=== PATIENT | female | born 1970 | race Caucasian/White ===

== ENCOUNTER 2025-05-03 13:20 | Outpatient (AMB) | payer OTHER, SELFPAY ==
--- NOTE | 2025-05-03 13:24 | MHC.PC.OV ---
Vital Signs 05/03/25 13:31 Height 5 ft 2.99 in Weight 171 lb BMI 30.3 BP 110/72 Blood Pressure Location Lt brachial Position Sitting Respiration 14 Pulse 107 H Pulse Source Pulse Oximeter Temp 98.1 F Temp Source Oral Pulse Oximetry (%) 97 Oxygen Delivery Method Room Air Intake Visit Reasons: New Appt New Patient requesitng an PE Allergies No Known Allergies Allergy (Verified 05/03/25 13:56) Medication List - Last Reconciled 05/03/25 by Jany Lester PA-C amlodipine 10 mg PO DAILY 90 days Tobacco use date assessed: 05/03/25 Dental Screening Dental Screen Date: 05/03/25 Did you have a dental visit in the last 12 months?: Yes Did you have a dental problem in the last 6 months where you did not have access to dental care?: No Was dental information given to patient?: Patient has dentist HPI New Appt New Patient requesitng an PE HPI Details Patient is a 54-year-old female who presents today to [facility]. She is transferring from [place]. She has a significant past medical history of hypertension. Currently on semaglutide from compound pharmacy. Overall eats healthy and exercises. She has found this semaglutide very helpful. 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 CV: Blood pressure today in the office is 110/72. She is on amlodipine 10 mg. Career Based Intervention Coordinator: Dr. 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 1. Little interest or pleasure in doing things: not at all 2. Feeling down, depressed, or hopeless: not at all 3. Trouble falling or staying asleep, or sleeping too much: not at all 4. Feeling tired or having little energy: not at all 5. Poor appetite or overeating: not at all 6. Feeling bad about yourself - or that you are a failure or have let yourself or your family down: not at all 7. Trouble concentrating on things, such as reading the newspaper or watching television: not at all 8. Moving or speaking so slowly that other people could have noticed. Or the opposite - being so fidgety or restless that you have been moving around a lot more than usual: not at all 9. Thoughts that you would be better off or of hurting yourself in some way: not at all Total score: 0 Depression Screening Interpretation: Negative Depression Screening Done: Yes 16729 - PHQ-9 Billing: Yes Source: Developed by Drs. Abdulkadir Toribio, Bethany Pack, Lew Owusu and colleagues, with an educational juliana from [employer]. Thrive Questionnaire Date Thrive assessed: 05/03/25 I am a: Patient What is your living situation today?: I have a steady place to live Within the past 12 months, did the food you bought not last and you didn't have the money to get more?: Never true Within the past 12 months, did you worry whether your food would run out before you got money to buy more?: Never true Do you have trouble paying for medicines?: No Do you have trouble getting transportation to medical appointments?: No Do you have trouble paying your heating and electricity bill?: No Do you have trouble taking care of your child, family member or friend?: No Do you have trouble with day-to-day activities such as bathing, preparing meals, shopping, managing finances, etc.?: No Are you currently unemployed and looking for a job?: No Are you interested in more education?: No Please select the resources that you would like help with: None Currently or been in a relationship where the following occur: No concerns reported THRIVE Score: 0 AUDIT C Alcohol Use Questionnaire (AUDIT-C) 1. How often do you have a drink containing alcohol?: 2-3 times a week 2. How many drinks containing alcohol do you have on a typical day when you are drinking?: 1 or 2 3. How often do you have six or more drinks on one occasion?: Never Total Score: 3 Score Reviewed/Action Taken: Yes OFELIA-7 AMB Questionnaire OFELIA-7 Date OFELIA - 7 assessed: 05/03/25 Feeling nervous, anxious, or on edge: 0 = Not at all Not being able to stop or control worryin = Not at all Worrying too much about different things: 0 = Not at all Trouble relaxin = Not at all Being so restless that it is hard to sit still: 0 = Not at all Becoming easily annoyed or irritable: 0 = Not at all Feeling afraid as if something awful might happen: 0 = Not at all Total OFELIA-7 score (0-4 normal; 5-9 mild; 10-14 moderate; 15-21 severe): 0 Source: Developed by Drs. Abdulkadir Toribio, Bethany Pack, Lew Owusu and colleagues, with an educational juliana from [employer]. OFELIA-7 Assessment Billing OFELIA-7 Assessment Tool: OFELIA-7 Assessment 28818 Physical exam (Primary Care) Vital Signs: Last Vital Signs Temp 98.1 F 05/03/25 13:31 Pulse 107 H 05/03/25 13:31 Resp 14 05/03/25 13:31 BP 110/72 05/03/25 13:31 Pulse Ox 97 05/03/25 13:31 Oxygen Delivery Method Room Air 05/03/25 13:31 BMI result Body Mass Index 30.3 Tobacco/Smoking Status: Tobacco use Status Tobacco use date assessed 05/03/25 05/03/25 13:33 Patient Tobacco Use Status Former Tobacco user 05/03/25 13:33 e-Cigarette/Vaping Use Never Used 05/03/25 13:33 PHQ-9: PHQ-9 Score PHQ-9: Total score 0 05/03/25 13:41 Depression Screening Interpretation: Negative Thrive Assessment: Date of Thrive Assessment Date Thrive assessed 05/03/25 05/03/25 13:33 Currently or been in a relationship where the following occur: No concerns reported Const Orientation/consciousness: patient oriented x3 HENMT Ears: hearing grossly normal bilaterally General nose exam: No nasal polyps present Face and sinus: Yes sinuses nontender Mouth: Normal oral and palatal mucosa present Eyes Pupils: Equal, round and reactive pupils present EOM: EOMs intact bilaterally Neck Neck: Yes full ROM and Yes no lymphadenopathy Thyroid: Thyroid normal Lymphatic: no lymphadenopathy noted Chest Chest palpation & inspection: normal inspection of the chest Resp Auscultation: clear to auscultation bilaterally Cardio Rate: regular rate Rhythm: regular rhythm Heart sounds: S1 normal heart sound present and S2 normal heart sound present Peripheral pulses: Peripheral pulses 2+ throughout GI Other: Soft, nontender Inspection: Yes normal to inspection Palpation (GI): Soft to palpation and Other GI palpation findings present (nontender, no cva tenderness) Auscultation: normoactive bowel sounds Rectal Exam - Female: deferred General: Yes no CVA tenderness Back/Spine/Pelvis Other: Nontender Back: no CVA tenderness Skin General skin exam: no rashes or lesions noted Neuro General: patient oriented x3, gait normal and no focal motor deficits Cranial nerves: Yes Equal, round and reactive pupils present Motor exam (neuro): 5/5 motor strength present throughout Sensory Exam: double simultaneous stimulation for sensation normal Coordination: [id number] test normal and Romberg test negative Extrem General: Yes normal to inspection and Yes full ROM Psych Affect: normal affect Attitude: cooperative Thought process: Normal thought process present Thought content: Normal thought content present Insight: Good insight present (Psych) Judgement: Good judgement present (Psych) Coding Level of Care Code New Pt Level 3 (14436) Complex EM visit Add On G2211 Diagnoses HTN (hypertension) I10 Additional Codes OFELIA-7 Assessment Billing - OFELIA-7 Assessment Tool: OFELIA-7 Assessment 76651 ([id number]) PHQ-9 - 28804 - PHQ-9 Billing: Yes ([id number]) Assessment & Plan Assessment & Plan (1) HTN (hypertension): Code(s): I10 - Essential (primary) hypertension Category: Medical Plan: WNL. Continue current regimen refill Bone density ordered. Mammogram ordered. Referral to kennel operator. Referral to GI. Labs ordered Orders: Orders XR DEXA axial skeleton 05/03/25 N95.1 - Menopausal and female climacteric states Comprehensive [place]. Panel Fast 05/03/25 I10 - Essential (primary) hypertension, Z01.89 - Encounter for other specified special examinations Lipid Panel 05/03/25 I10 - Essential (primary) hypertension, Z01.89 - Encounter for other specified special examinations Vitamin B12 and Folate 05/03/25 I10 - Essential (primary) hypertension MM screening mammo BI 05/03/25 Z12.31 - Encounter for screening mammogram for malignant neoplasm of breast Complete Blood Count Auto Diff 05/03/25 I10 - Essential (primary) hypertension, Z01.89 - Encounter for other specified special examinations TSH reflex Free T4 05/03/25 I10 - Essential (primary) hypertension, Z01.89 - Encounter for other specified special examinations UA CC w/rflx Micro + Cult 05/03/25 I10 - Essential (primary) hypertension, Z01.89 - Encounter for other specified special examinations, Z13.220 - Encounter for screening for lipoid disorders Microalbumin, Random (w Creat) 05/03/25 I10 - Essential (primary) hypertension Referrals [facility]CH[facility] Referral Z01.419 - Encounter for gynecological examination (general) (routine) without abnormal findings Gastroenterology Referral Z12.11 - Encounter for screening for malignant neoplasm of colon Medications: Refilled amlodipine 10 mg PO DAILY 90 tabs 3RF 90 days I10 - Essential (primary) hypertension
[2025-05-03 13:31] VITALS: BP 110/72; PULSE 107; RESP 14; TEMP 36.7; O2SAT 97; BMI 30.3
== END 2025-05-03 14:24 | disposition home or self-care (01) ==
LOC: HO.HMCFM 13:21
PROVIDERS: PCP Physician Assistant; Visit Provider Physician Assistant
DX: I10 Essential (primary) hypertension (principal)

== ENCOUNTER → 2025-05-03 13:20 | Outpatient (BNVA) | payer OTHER, SELFPAY | PROVIDERS: PCP Physician Assistant; Visit Provider Physician Assistant | DX: I10 Essential (primary) hypertension (principal) | CPT/HCPCS: 96127; 99202 ==

== ENCOUNTER 2025-05-28 10:03 | Outpatient (REF) | payer OTHER, SELFPAY ==
[2025-05-28 11:10] LABS: MANUAL DIFF FLAG NO
[2025-05-28 11:24] LABS: Hematocrit 40.9 % (37.0-47.0); Hemoglobin 14.5 g/dl (12.0-16.0); Imm Gran Abs Auto 0.00 X10*3/uL (0.00-0.03); Imm Gran Pct Auto 0.0 % (0.0-0.4); Lymphocytes Absolute Auto 1.4 X10*3/uL (1.2-4.9); Mean Corpuscular HGB Conc 35.5 g/dl (31.0-35.0); Mean Corpuscular Hemoglobin 32.7 pg (27.0-33.0); Mean Corpuscular Volume 92.1 fL (80.0-98.0); NRBC Abs Auto 0.000 X10*3/uL (0.0-0.012); NRBC Pct Auto 0.0 /100WBC (0.0-0.2); Platelet Count 312 X10*3/uL (160-400); Red Blood Count 4.44 X10*6/uL (4.20-5.50); White Blood Count 5.1 X10*3/uL (4.8-10.8)
[2025-05-28 11:27] LABS: Appearance Urine Clear; Glucose Urine UA Negative (Negative); PH 6.5 (5.0-9.0); Specific Gravity - Urine 1.020 (1.005-1.025)
[2025-05-28 11:50] LABS: Microalbum/Creatinine Ratio Ur 5.1 ug/mg cr (<30)
[2025-05-28 11:58] LABS: Alanine Aminotransferase 53 U/L (0-31); Albumin Level 4.8 g/dL (3.5-5.0); Alkaline Phosphatase 96 U/L (39-117); Anion Gap 12 (12-20); Aspartate Amino Transferase 38 U/L (5-31); Blood Urea Nitrogen 10 mg/dL (9-16); Calcium 9.2 mg/dL (8.4-10.2); Carbon Dioxide 25 mmol/L (22-29); Chloride 109 mmol/L (96-108); Cholesterol 209 mg/dL (<200); Estimated Glomerular Filt Rate > 60; HDL Cholesterol 83 mg/dL (>40); Potassium 4.0 mmol/L (3.3-5.1); Sodium 142 mmol/L (135-145); Total Protein 7.5 g/dL (6.5-8.0); Triglycerides 39 mg/dL (<150)
[2025-05-28 12:23] LABS: Folate 11.2 ng/mL (> or = 4.0); Vitamin B12 1224 pg/mL (200-900)
== END 2025-05-28 10:04 | disposition home or self-care (01) ==
LOC: HO.WFDLDS 10:03
PROVIDERS: Visit Provider Physician Assistant
DX: Z01.89 Encounter for other specified special examinations (principal); Z13.220 Encounter for screening for lipoid disorders; I10 Essential (primary) hypertension
CPT/HCPCS: 36415; 80053; 80061; 81003; 82043; 82570; 82607; 82746; 84443; 85025

== ENCOUNTER 2025-06-14 08:53 | Outpatient (REF) | payer OTHER, SELFPAY ==
[2025-06-14 12:25] LABS: HBsAGNum1 0.34 S/CO (0.00-0.99); Hepatitis B Surface Antigen Negative (Negative); ~HepC Num1 0.17 S/CO (0.00-0.79); ~Hepatitis C Antibody Nonreactive (Nonreactive)
[2025-06-14 12:26] LABS: Alanine Aminotransferase 35 U/L (0-31); Albumin Level 4.7 g/dL (3.5-5.0); Alkaline Phosphatase 86 U/L (39-117); Aspartate Amino Transferase 30 U/L (5-31); Gamma Glutamyl Transpeptidase 38 U/L (7-33); Total Protein 7.2 g/dL (6.5-8.0)
[2025-06-14 12:36] LABS: Ferritin 270 ng/mL (10-250)
== END 2025-06-14 08:54 | disposition home or self-care (01) ==
LOC: HO.WFDLDS 08:53
PROVIDERS: Visit Provider Physician Assistant
DX: R94.5 Abnormal results of liver function studies (principal); Z11.59 Encounter for screening for other viral diseases
CPT/HCPCS: 36415; 80076; 82728; 82977; 86803; 87340